=== PATIENT | female | born 1985 | race Two or more races ===

== ENCOUNTER 2017-03-11 16:12 | Emergency (ER) | payer MEDICAID, OTHER ==
[~2017-03-11] VITALS: Ht 157.5 cm; Wt 65.8 kg
[2017-03-11] MEDS ORDERED: KETOROLAC TROMETH 60MG/2ML VIAL IM ONE (20:00)
[2017-03-11 20:18] VITALS: BP 114/78
[2017-03-11] MEDS: methylPREDNISolone SOD SUCC 125 MG/2 ML VL IM ONE ×2 (20:31→20:32)
== END 2017-03-11 20:41 | disposition home or self-care (01) ==
LOC: ER 16:19
DX: S33.5XXA Sprain of ligaments of lumbar spine, initial encounter (principal); M79.1 Myalgia; W18.39XA Other fall on same level, initial encounter; Y93.89 Activity, other specified; Y92.89 Other specified places as the place of occurrence of the external cause; Y99.8 Other external cause status
CPT/HCPCS: 96372; 99284; J1885; J2930

== ENCOUNTER 2018-04-01 20:12 | Emergency (ER) | payer SELFPAY ==
[~2018-04-01] VITALS: Ht 157.5 cm; Wt 65.8 kg
[2018-04-01 20:21] VITALS: BP 128/78
[2018-04-01] MEDS ORDERED: TETANUS-DIPTH-ACEL PERTUSSIS 0.5ML SYRG IM ONE (23:15)
== END 2018-04-01 23:46 | disposition home or self-care (01) ==
LOC: ER 20:12
DX: S31.41XD Laceration without foreign body of vagina and vulva, subsequent encounter (principal); X58.XXXD Exposure to other specified factors, subsequent encounter
CPT/HCPCS: 90471; 90715

== ENCOUNTER 2018-04-05 16:28 | Emergency (ER) | payer MEDICAID ==
[~2018-04-05] VITALS: Ht 157.5 cm; Wt 65.8 kg
[2018-04-05 16:36] VITALS: BP 116/73
[2018-04-05] MEDS ORDERED: cefTRIAXone SOD 1,000 MG VL IM ONE (17:15)
== END 2018-04-05 17:55 | disposition home or self-care (01) ==
LOC: ER 16:28
DX: S31.831D Laceration without foreign body of anus, subsequent encounter (principal); Z48.02 Encounter for removal of sutures; X58.XXXD Exposure to other specified factors, subsequent encounter
CPT/HCPCS: 96372; 99283; J0696